=== PATIENT | male | born 1980 | race Caucasian/White ===

== ENCOUNTER → 2022-10-01 | Outpatient (REF) | LOC: M PLAIMG 13:53 | PROVIDERS: ATTEND Internal Medicine | DX: R52 Pain, unspecified (principal) ==

== ENCOUNTER → 2023-10-07 | Outpatient (REF) | LOC: M PLAIMG 10:08 | PROVIDERS: ATTEND Internal Medicine | DX: R52 Pain, unspecified (principal); M17.12 Unilateral primary osteoarthritis, left knee ==